=== PATIENT | female | born 1980 | race Caucasian/White ===

== ENCOUNTER → 2017-03-18 | Outpatient (REF) | payer OTHER ==
[2017-03-18 17:37] LABS: MEAN CORPUSCULAR HEMOGLOBIN 30.5 pg (27.0-33.0); MEAN CORPUSCULAR VOLUME 92.6 fl (80.0-96.0); PLATELET COUNT, AUTOMATED 152 10^3/uL (150-450); RED CELL DISTRIBUTION WIDTH 11.3 % (11.5-14.5); WHITE BLOOD COUNT 4.8 10^3/uL (4.0-10.0)
[2017-03-18 17:50] LABS: HCG, SERUM QUANTITATIVE 56920 MIU/ML
[2017-03-19 14:31] LABS: HBsAg Prenatal NEGATIVE (NEGATIVE)
== END ==
LOC: M LAB REF 16:30
PROVIDERS: ATTEND Obstetrics & Gynecology
DX: O36.80X0 Pregnancy with inconclusive fetal viability, not applicable or unspecified (principal); Z3A.00 Weeks of gestation of pregnancy not specified

== ENCOUNTER → 2017-10-02 | Outpatient (REF) | payer OTHER | LOC: M LAB REF 13:14 | DX: Z34.83 Encounter for supervision of other normal pregnancy, third trimester (principal); Z3A.00 Weeks of gestation of pregnancy not specified ==

== ENCOUNTER 2017-11-06 05:52 | Inpatient (IN) | payer OTHER ==
[2017-11-06] MEDS: LR 800 ML IV (06:45)
[2017-11-06 07:13] LABS: HEMATOCRIT 35.3 % (36.0-47.0); HEMOGLOBIN 12.3 g/dl (12.0-15.5); MEAN CORPUSCULAR HEMOGLOBIN 33.3 pg (27.0-33.0); MEAN CORPUSCULAR HGB CONC 34.8 g/dl (32.0-36.5); MEAN CORPUSCULAR VOLUME 95.7 fl (80.0-96.0); PLATELET COUNT, AUTOMATED 109 10^3/uL (150-450); RED BLOOD COUNT 3.69 10^6/uL (4.00-5.40); RED CELL DISTRIBUTION WIDTH 11.9 % (11.5-14.5); WHITE BLOOD COUNT 6.5 10^3/uL (4.0-10.0)
[2017-11-06] MEDS ORDERED: FENTANYL 2MCG/ML ROPIVACAINE 0.2% IN 0.9% NACL 200ML IVBAG As Ordered (07:25)
[2017-11-06] MEDS ORDERED: OXYTOCIN 30 UNITS IN 0.9% NaCl 500ML IV BAG (J2590) As Ordered (08:59)
[2017-11-06] MEDS ORDERED: EPIDURAL/PCA KEYS XX (09:15)
[2017-11-06] MEDS ORDERED: REFRIGERATOR IV KEYS XX (09:15)
[2017-11-06] MEDS ORDERED: FENTANYL/ROPIVACAINE/NACL BAG 200 ML EPIDURAL (09:15)
[2017-11-06] MEDS ORDERED: NALOXONE INJ 0.4 MG/1 ML VIAL (J2310) IV (09:15)
[2017-11-06] MEDS ORDERED: EPIDURAL COMMENT XX (09:15)
[2017-11-06] MEDS ORDERED: diphenhydrAMINE INJ 50MG/ML VIAL (J1200) IV (09:15)
[2017-11-06] MEDS ORDERED: ONDANSETRON 4MG/2ML VIAL (J2405) IV (09:15)
[2017-11-06 09:19] LABS: CORD GAS HCO3 V 22.6 MEQ/L; CORD GAS O2 SAT V 74.2 %; CORD GAS PH V 7.428 UNITS; CORD GAS PO2 V 29.3 mmHg; CORD GAS TCO2 V 23.7 MEQ/L
[2017-11-06] MEDS: OXYTOCIN DRIP 30 UNITS in APPROPRIATE DILUENT 1 EA IV (09:21)
[2017-11-06 09:22] LABS: CORD GAS ABE A -6.6; CORD GAS HCO3 A 19.1 MEQ/L; CORD GAS O2 SAT A 73.7 %; CORD GAS PCO2 A 39.2 mmHg; CORD GAS PH A 7.306 UNITS; CORD GAS PO2 A 30.9 mmHg; CORD GAS SBC A 18.6 MEQ/L; CORD GAS TCO2 A 20.3 MEQ/L
[2017-11-06] MEDS ORDERED: METHYLERGONOVINE MALEATE 0.2 MG/ML VIAL (J2210) IM (09:30)
[2017-11-06] MEDS ORDERED: MOM 30ML SUSPENSION UDC PO (09:30)
[2017-11-06] MEDS ORDERED: RHOGAM 300 MCG (1500 IU) INJ (J2790) IM (09:30)
[2017-11-06] MEDS ORDERED: METHYLERGONOVINE MALEATE 0.2 MG TAB PO (09:30)
[2017-11-06] MEDS ORDERED: MEASLES,MUMPS,RUBELLA VACCINE INJ (MMR-II) (90707) SC (09:30)
[2017-11-06] MEDS: IBUPROFEN 800 MG TAB PO ×2 (09:47→17:37)
[2017-11-06] MEDS: LIDOCAINE 1% MDV 20ML VIAL SC (10:00)
[2017-11-06] MEDS: ACETAMINOPHEN 500 MG TAB PO ×2 (11:57→20:01)
[2017-11-06] MEDS: DIBUCAINE 1% OINTMENT 30GM TOP (12:15)
[2017-11-06] MEDS: DOCUSATE SODIUM 100 MG CAP PO (19:49)
[2017-11-07] MEDS: IBUPROFEN 800 MG TAB PO (04:32)
[2017-11-07] MEDS: DOCUSATE SODIUM 100 MG CAP PO (08:24)
[2017-11-07] MEDS: PRENATAL VITAMINS CHEWABLE TABLET PO (08:24)
[2017-11-07] MEDS: ACETAMINOPHEN 500 MG TAB PO (08:25)
== END 2017-11-07 14:40 | disposition home or self-care (01) | DRG 775 ==
LOC: M LDO 05:52 → M LDI 06:32 → M OBS 13:32
PROVIDERS: Obstetrics & Gynecology
PROC: 10E0XZZ Delivery of Products of Conception, External Approach (ICD-10-PCS; principal; 2017-11-06)
PROC: 0KQM0ZZ Repair Perineum Muscle, Open Approach (ICD-10-PCS; 2017-11-06)
DX: O34.211 Maternal care for low transverse scar from previous cesarean delivery (principal); Z37.0 Single live birth; Z3A.40 40 weeks gestation of pregnancy; O48.0 Post-term pregnancy; O09.523 Supervision of elderly multigravida, third trimester; O70.1 Second degree perineal laceration during delivery

== ENCOUNTER → 2021-05-18 | Outpatient (CLI) | payer BC ==
[~2021-05-18] MED LIST: IBUP-1114 PO; MAPA500T2 PO; PRENTAB9 PO
== END ==
LOC: M WHC 14:52
PROVIDERS: ATTEND Nurse Practitioner Family
DX: Z12.31 Encounter for screening mammogram for malignant neoplasm of breast (principal); N63.10 Unspecified lump in the right breast, unspecified quadrant

== ENCOUNTER → 2021-06-06 | Outpatient (CLI) | payer BC | LOC: M WHC 15:01 | PROVIDERS: ATTEND Nurse Practitioner Family | DX: N60.11 Diffuse cystic mastopathy of right breast (principal) | CPT/HCPCS: 76642; 77065; G0279 ==

== ENCOUNTER → 2021-10-15 | Outpatient (CLI) | payer BC | LOC: M RAD 17:13 | PROVIDERS: ATTEND Internal Medicine | DX: M19.041 Primary osteoarthritis, right hand (principal) ==

== ENCOUNTER → 2021-11-09 | Outpatient (REF) | payer BC | LOC: M SFHCRHEU 09:00 | PROVIDERS: ATTEND Internal Medicine | DX: R53.83 Other fatigue (principal) ==

== ENCOUNTER → 2022-05-20 | Outpatient (CLI) | payer OTHER, SELFPAY | LOC: M WHC 15:12 | PROVIDERS: ATTEND Family Medicine | DX: Z12.31 Encounter for screening mammogram for malignant neoplasm of breast (principal) ==

== ENCOUNTER → 2022-05-22 | Outpatient (CLI) | payer OTHER | LOC: M LAB 16:43 | PROVIDERS: ATTEND Internal Medicine | DX: E55.9 Vitamin D deficiency, unspecified (principal); R76.8 Other specified abnormal immunological findings in serum ==

== ENCOUNTER → 2022-10-05 | Outpatient (CLI) | payer OTHER | LOC: M LAB 08:20 | PROVIDERS: ATTEND Internal Medicine | DX: E55.9 Vitamin D deficiency, unspecified (principal) ==

== ENCOUNTER → 2023-05-01 | Outpatient (CLI) | payer OTHER ==
[2023-05-01 08:06] LABS: BASO % 0.3 % (0.0-1.0); EOS # 0.1 10^3/uL (0.0-0.5); HEMATOCRIT 38.5 % (36.0-47.0); HEMOGLOBIN 12.6 g/dl (12.0-15.5); LYMPH # 1.4 10^3/uL (1.5-5.0); LYMPH % 46.3 % (24.0-44.0); MEAN CORPUSCULAR HEMOGLOBIN 31.1 pg (27.0-33.0); MEAN CORPUSCULAR HGB CONC 32.7 g/dl (32.0-36.5); MEAN CORPUSCULAR VOLUME 95.1 fl (80.0-96.0); MONO # 0.3 10^3/uL (0.0-0.8); MONO % 8.8 % (2.0-8.0); NEUTROPHILS # 1.3 10^3/uL (1.5-8.5); NEUTROPHILS % 42.6 % (36.0-66.0); PLATELET COUNT, AUTOMATED 142 10^3/uL (150-450); RED BLOOD COUNT 4.05 10^6/uL (4.00-5.40)
[2023-05-01 08:27] LABS: ALBUMIN 3.8 G/DL (3.2-5.2); ALKALINE PHOSPHATASE 32 U/L (46-116); ALT/SGPT 23 U/L (7.0-40); AST/SGOT 17 U/L (<34); BILIRUBIN,TOTAL 0.6 MG/DL (0.3-1.2); BLOOD UREA NITROGEN 17 MG/DL (9-23); CALCIUM LEVEL 8.8 MG/DL (8.5-10.1); CARBON DIOXIDE LEVEL 27 MMOL/L (20-31); CHLORIDE LEVEL 107 MMOL/L (98-107); CHOLESTEROL LEVEL 182 MG/DL (<200); CHOLESTEROL RISK RATIO 3.27 (<5); CREATININE FOR GFR 0.54 MG/DL (0.55-1.30); GLOMERULAR FILTRATION RATE > 60.0 (>58); GLUCOSE, FASTING 91 MG/DL (60-100); HDL CHOLESTEROL 55.6 MG/DL (>40); LDL CHOLESTEROL 103.8 MG/DL (<100); NON-HDL-C 126.4 MG/DL; SODIUM LEVEL 138 MMOL/L (136-145); TOTAL PROTEIN 6.4 G/DL (5.7-8.2); TRIGLYCERIDES LEVEL 113 MG/DL (<150)
[2023-05-01 08:29] LABS: THYROID STIMULATING HORMONE 1.043 uIU/ML (0.55-4.78)
== END ==
LOC: M LAB 07:19
PROVIDERS: ATTEND Family Medicine
DX: Z00.00 Encounter for general adult medical examination without abnormal findings (principal)

== ENCOUNTER → 2023-05-23 | Outpatient (CLI) | payer OTHER | LOC: M WHC 15:51 | PROVIDERS: ATTEND Family Medicine | DX: Z12.31 Encounter for screening mammogram for malignant neoplasm of breast (principal) ==

== ENCOUNTER → 2023-05-27 | Outpatient (REF) | payer OTHER | LOC: M LAB REF 18:16 | PROVIDERS: ATTEND Nurse Practitioner Family | DX: Z01.419 Encounter for gynecological examination (general) (routine) without abnormal findings (principal) | CPT/HCPCS: 87624; G0123 ==

== ENCOUNTER → 2023-06-05 | Outpatient (CLI) | payer OTHER | LOC: M WHC 08:08 | PROVIDERS: ATTEND Nurse Practitioner Family | DX: R92.2 Inconclusive mammogram (principal); R92.333 Mammographic heterogeneous density, bilateral breasts; N60.11 Diffuse cystic mastopathy of right breast; N60.12 Diffuse cystic mastopathy of left breast | CPT/HCPCS: 77066; G0279 ==

== ENCOUNTER → 2023-08-29 | Outpatient (CLI) | payer OTHER ==
[2023-08-29 07:48] LABS: BASO % 0.3 % (0.0-1.0); EOS # 0.1 10^3/uL (0.0-0.5); EOS % 1.5 % (0.0-3.0); HEMATOCRIT 36.9 % (36.0-47.0); HEMOGLOBIN 12.4 g/dl (12.0-15.5); LYMPH # 1.5 10^3/uL (1.5-5.0); MEAN CORPUSCULAR HEMOGLOBIN 31.2 pg (27.0-33.0); MEAN CORPUSCULAR HGB CONC 33.6 g/dl (32.0-36.5); MEAN CORPUSCULAR VOLUME 92.9 fl (80.0-96.0); MONO # 0.3 10^3/uL (0.0-0.8); MONO % 9.7 % (2.0-8.0); NEUTROPHILS # 1.4 10^3/uL (1.5-8.5); NEUTROPHILS % 43.5 % (36.0-66.0); PLATELET COUNT, AUTOMATED 136 10^3/uL (150-450); RED BLOOD COUNT 3.97 10^6/uL (4.00-5.40); WHITE BLOOD COUNT 3.3 10^3/uL (4.0-10.0)
== END ==
LOC: M LAB 07:13
PROVIDERS: ATTEND Family Medicine
DX: D70.4 Cyclic neutropenia (principal)

== ENCOUNTER → 2024-02-03 | Outpatient (REF) | payer OTHER ==
[2024-02-03 16:34] LABS: BASO % 0.5 % (0.0-1.0); EOS % 0.5 % (0.0-3.0); HEMATOCRIT 40.5 % (36.0-47.0); HEMOGLOBIN 13.4 g/dl (12.0-15.5); LYMPH # 1.1 10^3/uL (1.5-5.0); LYMPH % 25.7 % (24.0-44.0); MEAN CORPUSCULAR HEMOGLOBIN 31.7 pg (27.0-33.0); MEAN CORPUSCULAR HGB CONC 33.1 g/dl (32.0-36.5); MEAN CORPUSCULAR VOLUME 95.7 fl (80.0-96.0); MONO # 0.3 10^3/uL (0.0-0.8); MONO % 7.3 % (2.0-8.0); NEUTROPHILS # 2.9 10^3/uL (1.5-8.5); NEUTROPHILS % 65.8 % (36.0-66.0); PLATELET COUNT, AUTOMATED 157 10^3/uL (150-450); RED BLOOD COUNT 4.23 10^6/uL (4.00-5.40); WHITE BLOOD COUNT 4.4 10^3/uL (4.0-10.0)
[2024-02-03 17:03] LABS: ALBUMIN 4.2 G/DL (3.2-5.2); ALKALINE PHOSPHATASE 44 U/L (46-116); ALT/SGPT 17 U/L (7.0-40); AST/SGOT 11 U/L (<34); BILIRUBIN,DIRECT < 0.1 MG/DL (<0.4); BILIRUBIN,TOTAL 0.3 MG/DL (0.3-1.2); BLOOD UREA NITROGEN 17 MG/DL (9-23); CALCIUM LEVEL 9.2 MG/DL (8.5-10.1); CARBON DIOXIDE LEVEL 25 MMOL/L (20-31); CHLORIDE LEVEL 104 MMOL/L (98-107); COMPLEMENT C3 136.4 MG/DL (90.0-170.0); CREATININE FOR GFR 0.57 MG/DL (0.55-1.30); GLOMERULAR FILTRATION RATE > 60.0 (>58); GLUCOSE, FASTING 83 MG/DL (60-100); POTASSIUM SERUM 3.5 MMOL/L (3.5-5.1); SODIUM LEVEL 136 MMOL/L (136-145); TOTAL PROTEIN 7.6 G/DL (5.7-8.2)
[2024-02-03 17:06] LABS: TOTAL 25(OH) VITAMIN D 24.4 NG/ML (20.0-100.0)
[2024-02-03 17:30] LABS: CREATININE,RANDOM URINE 70.3 MG/DL
[2024-02-03 17:31] LABS: TOTAL PROTEIN,RANDOM URINE < 6.0 MG/DL (0.0-14.0)
[2024-02-03 18:03] LABS: APPEARANCE, URINE CLEAR (CLEAR); BACTERIA, URINE AUTO NEGATIVE (NEGATIVE); BILIRUBIN, URINE AUTO NEGATIVE (NEGATIVE); BLOOD, URINE BLOOD NEGATIVE (NEGATIVE); COLOR, URINE YELLOW (YELLOW); GLUCOSE, URINE (UA) AUTO NEGATIVE (NEGATIVE); KETONE, URINE AUTO TRACE mg/dL (NEGATIVE); LEUKOCYTE ESTERASE, URINE AUTO NEGATIVE (NEGATIVE); MUCUS, URINE SMALL (NEGATIVE); NITRITE, URINE AUTO NEGATIVE (NEGATIVE); PROTEIN, URINE AUTO NEGATIVE (NEGATIVE); RBC, URINE AUTO 0 /HPF (0-3); SPECIFIC GRAVITY URINE AUTO 1.012 (1.002-1.035); SQUAMOUS EPITHELIAL CELL UR AU 0 /HPF (0-6); UROBILINOGEN, URINE AUTO 0.2 mg/dL (0.0-2.0); WBC, URINE AUTO 0 /HPF (0-3)
[2024-02-05 11:48] LABS: HSV 1 IGG TYPE SPECIFIC < 0.90 index (<0.90); HSV 2 IGG TYPE SPECIFIC < 0.90 index (<0.90)
== END ==
LOC: M SFHCRHEU 15:17
PROVIDERS: ATTEND Internal Medicine
DX: E55.9 Vitamin D deficiency, unspecified (principal); M25.40 Effusion, unspecified joint; K12.1 Other forms of stomatitis

== ENCOUNTER → 2024-04-03 | Outpatient (CLI) | payer OTHER ==
[~2024-04-03] MED LIST changes: +AMLO2.5T3; +BUSP5TA; +METH4PACK; +ZITHTAB PO; +[UNRECOGNIZED DRUG - CODE]
== END ==
LOC: M RAD 09:52
PROVIDERS: ATTEND Nurse Practitioner Family
DX: J06.9 Acute upper respiratory infection, unspecified (principal)

== ENCOUNTER 2024-04-05 16:19 | Emergency (ER) | payer OTHER ==
[~2024-04-05] VITALS: Ht 167.6 cm; Wt 59.3 kg
[~2024-04-05 16:19] MED LIST changes: -AMLO2.5T3; -BUSP5TA; -METH4PACK; -ZITHTAB PO; -[UNRECOGNIZED DRUG - CODE]
[2024-04-05] MEDS ORDERED: AMLO2.5T3 (16:29)
[2024-04-05] MEDS ORDERED: BUSP5TA (16:29)
[2024-04-05] MEDS ORDERED: METH4PACK (16:29)
[2024-04-05] MEDS ORDERED: [UNRECOGNIZED DRUG - CODE] (16:29)
[2024-04-05 18:23] VITALS: BP 121/61; TEMP 97.8; O2SAT 99
[2024-04-05] MEDS: IPRATROPIUM 0.5MG/ALBUTEROL 2.5MG INH SOL UD 3ML (DUONEB) NEB ONE (19:25)
[2024-04-05] MEDS ORDERED: ZITHTAB PO (19:54)
== END 2024-04-05 20:26 | disposition home or self-care (01) ==
LOC: M ED 16:19
DX: J20.9 Acute bronchitis, unspecified (principal); Z11.52 Encounter for screening for COVID-19; Z79.899 Other long term (current) drug therapy

== ENCOUNTER → 2024-06-07 | Outpatient (CLI) | payer OTHER ==
[~2024-06-07] MED LIST changes: +AMLO2.5T3; +BUSP5TA; +METH4PACK; +ZITHTAB PO; +[UNRECOGNIZED DRUG - CODE]
== END ==
LOC: M WHC 15:17
PROVIDERS: ATTEND Nurse Practitioner Family
DX: Z12.31 Encounter for screening mammogram for malignant neoplasm of breast (principal); R92.333 Mammographic heterogeneous density, bilateral breasts; N60.02 Solitary cyst of left breast

== ENCOUNTER → 2024-06-15 | Outpatient (CLI) | payer OTHER | LOC: M WHC 12:50 | PROVIDERS: ATTEND Nurse Practitioner Family | DX: R92.8 Other abnormal and inconclusive findings on diagnostic imaging of breast (principal); N60.02 Solitary cyst of left breast ==

== ENCOUNTER → 2025-03-21 | Outpatient (REF) | payer OTHER ==
[2025-03-21 18:21] LABS: APPEARANCE, URINE CLEAR (CLEAR); BACTERIA, URINE AUTO NEGATIVE (NEGATIVE); BILIRUBIN, URINE AUTO NEGATIVE (NEGATIVE); BLOOD, URINE BLOOD 3+ (NEGATIVE); GLUCOSE, URINE (UA) AUTO NEGATIVE (NEGATIVE); KETONE, URINE AUTO NEGATIVE (NEGATIVE); LEUKOCYTE ESTERASE, URINE AUTO NEGATIVE (NEGATIVE); MUCUS, URINE SMALL (NEGATIVE); NITRITE, URINE AUTO NEGATIVE (NEGATIVE); PROTEIN, URINE AUTO NEGATIVE (NEGATIVE); RBC, URINE AUTO 0 /HPF (0-3); SPECIFIC GRAVITY URINE AUTO 1.010 (1.002-1.035); SQUAMOUS EPITHELIAL CELL UR AU 0 /HPF (0-6); UROBILINOGEN, URINE AUTO 0.2 mg/dL (0.0-2.0); WBC, URINE AUTO 0 /HPF (0-3)
[2025-03-21 19:05] LABS: BASO # 0.0 10^3/uL (0.0-0.2); BASO % 0.4 % (0.0-1.0); EOS # 0.0 10^3/uL (0.0-0.5); EOS % 0.8 % (0.0-3.0); LYMPH # 1.4 10^3/uL (1.5-5.0); LYMPH % 26.4 % (24.0-44.0); MONO # 0.3 10^3/uL (0.0-0.8); MONO % 5.6 % (2.0-8.0); NEUTROPHILS # 3.4 10^3/uL (1.5-8.5); NEUTROPHILS % 65.6 % (36.0-66.0); PLATELET COUNT, AUTOMATED 160 10^3/uL (150-450)
[2025-03-21 19:14] LABS: TOTAL PROTEIN,RANDOM URINE < 6.0 MG/DL (0.0-14.0)
[2025-03-21 19:35] LABS: C REACTIVE PROTEIN QUANTITATIV < 0.50 MG/DL (<1.0)
[2025-03-21 19:37] LABS: ALT/SGPT 18 U/L (7.0-40); AST/SGOT 21 U/L (<34); CALCIUM LEVEL 9.0 MG/DL (8.5-10.1); CARBON DIOXIDE LEVEL 24 MMOL/L (20-31); CHLORIDE LEVEL 103 MMOL/L (98-107); COMPLEMENT C4 34.9 MG/DL (12-36); CREATININE FOR GFR 0.64 MG/DL (0.55-1.30); GLOMERULAR FILTRATION RATE > 90.0 (>58); POTASSIUM SERUM 3.4 MMOL/L (3.5-5.1); SODIUM LEVEL 141 MMOL/L (136-145)
== END ==
LOC: M SFHCRHEU 15:24
PROVIDERS: ATTEND Internal Medicine
DX: M25.40 Effusion, unspecified joint (principal)

== ENCOUNTER → 2025-03-26 | Outpatient (CLI) | payer OTHER | LOC: M RAD 08:46 | PROVIDERS: ATTEND Internal Medicine | DX: M25.40 Effusion, unspecified joint (principal) ==

== ENCOUNTER → 2025-05-02 | Outpatient (CLI) | payer OTHER | LOC: M PLAIMG 12:35 | PROVIDERS: ATTEND Internal Medicine | DX: M25.441 Effusion, right hand (principal) ==